=== PATIENT | male | born 1995 | race Two or more races ===

== ENCOUNTER 2020-02-06 04:33 | Emergency (ER) | payer MEDICAID ==
[~2020-02-06] VITALS: Ht 172.7 cm; Wt 72.7 kg
[2020-02-06 04:46] VITALS: BP 160/84
== END 2020-02-06 05:43 | disposition home or self-care (01) ==
LOC: EMS 04:35
DX: K91.840 Postprocedural hemorrhage of a digestive system organ or structure following a digestive system procedure (principal)
CPT/HCPCS: Z7502